=== PATIENT | female | born 1935 | race Caucasian/White ===

== ENCOUNTER → 2020-11-03 | Day surgery (SDC) | payer OTHER | END | disposition home or self-care (01) | LOC: JRADUS-SUR 09:04 | PROVIDERS: ATTEND Internal Medicine | PROC: 0H9T3ZX Drainage of Right Breast, Percutaneous Approach, Diagnostic (ICD-10-PCS; principal; 2020-11-03) | DX: C50.911 Malignant neoplasm of unspecified site of right female breast (principal) | CPT/HCPCS: 19083; 87899; 88305-TC; 88342-TC; A4648 ==